=== PATIENT | male | born 1970 | race Hispanic/Latino ===

== ENCOUNTER 2017-11-12 18:38 | Emergency (ER) | payer SELFPAY ==
[2017-11-14] MEDS ORDERED: TEGRETOL200 MG PO (16:56)
[2017-11-14] MEDS ORDERED: PHENOBARBITAL97.2 MG PO (16:56)
== END 2017-11-12 19:45 | disposition left against medical advice (07) ==
LOC: ER 18:38
DX: R56.9 Unspecified convulsions (principal)